=== PATIENT | female | born 2000 ===

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

== ENCOUNTER 2025-01-29 17:27 | Emergency (ER) | payer OTHER, SELFPAY ==
[2025-01-29 17:47] VITALS: BP 121/68; PULSE 73; RESP 18; TEMP 36.6; O2SAT 97; BMI 20.7
[2025-01-29 18:14] LABS: Add Manual Diff / Slide Review NO; Hematocrit 40.6 % (36-46); Hemoglobin 13.9 g/dL (12.0-16.0); Lymphocytes Absolute Auto 3200 /uL (1100-4500); Mean Corpuscular HGB Conc 34.2 % (30-36); Mean Corpuscular Hemoglobin 30.5 PG (26-34); Mean Corpuscular Volume 89.2 fL (80-100); Platelet Count 261 X10^3/uL (150-400)
[2025-01-29 18:16] LABS: Appearance Urine UA CLEAR; Bilirubin Urine UA NEGATIVE (NEGATIVE); Color Urine UA YELLOW; Glucose Urine UA NEGATIVE (Negative); Ketones Urine UA TRACE (NEGATIVE); Leukocyte Esterase Urine UA NEGATIVE (NEGATIVE); Nitrite Urine UA NEGATIVE (Negative); Occult Blood Urine UA NEGATIVE (Negative); Protein Urine UA NEGATIVE (Negative); Specific Gravity Urine UA 1.025 (1.000-1.035); Urobilinogen Urine UA 1.0 E.U./dL (0.2)
[2025-01-29 18:17] LABS: Ictotest Urine Negative (Negative); pH Urine UA 6.0 (4.5-8.0)
[2025-01-29 18:22] LABS: Culture Indicated Urine Cult Not Indicated
[2025-01-29 18:25] LABS: Alanine Aminotransferase 23 IU/L (<35); Albumin 5.0 g/dL (3.5-5.0); Albumin Globulin Ratio 1.5 (1.0-2.8); Alkaline Phosphatase 78 U/L (38-126); Blood Urea Nitrogen 12 mg/dL (7-17); Calcium 9.1 mg/dL (8.4-10.2); Carbon Dioxide 24 mmol/L (22-32); Chloride 104 mmol/L (98-107); Estimated Glomerular Filt Rate > 60 mL/min (>60); Globulin 3.4 g/dL (1.7-4.1); Glucose 85 mg/dL (70-99); HEMOLYSIS < 15 (0-50); Lipase 50 U/L (23-300); Potassium 3.8 mmol/L (3.4-5.1); Sodium 138 mmol/L (137-145); Total Protein 8.4 g/dL (6.3-8.2)
--- NOTE | 2025-01-29 18:36 | ED.ABDPAIN ---
HPI - Abdominal Pain General Chief Complaint: Abdominal Pain Stated Complaint: SENT FROM [facility] FOR POSS APPENDICITIS Time Seen by Provider: 01/29/25 18:36 Source: patient Mode of arrival: Ambulatory History of Present Illness HPI narrative: Patient is a 24-year-old female without any significant past medical history comes into the ED from home for evaluation of right lower quadrant abdominal pain, was seen at the walk-in clinic, sent here. Patient states he has been having these symptoms ongoing persistent for the past 2 days, nothing making it better or worse, does endorse some mild nausea but no vomiting. Denies any other symptoms at this time. Related Data Home Medications ?Medication ?Instructions ?Recorded ?Confirmed No Known Home Medications 01/29/25 01/29/25 Allergies Allergy/AdvReac Type Severity Reaction Status Date / Time No Known Drug Allergies Allergy Verified 01/29/25 17:51 Review of Systems Review of Systems Narrative: General: Denies fever, chills, weight loss HEENT: Denies headache, eye drainage, eye irritation, head trauma, sore throat, voice change Cardiovascular: Denies any chest pain, palpitations, tachycardia Respiratory: Denies any shortness of breath, cough, wheeze, stridor GI/: Positive abdominal pain, nausea, denies vomiting, diarrhea, bright red blood per rectum, melanotic stools, urinary frequency, urinary retention, dysuria, hematuria MSK: Denies any joint pain, muscle pains, swelling Skin: Denies any rashes, lesions, discoloration Neuro: Denies any headache, lightheadedness, dizziness, fainting, weakness Psych: Denies SI/HI Patient History Medical History (Updated 01/29/25 @ 19:54 by Unruly Art DO) Strep pharyngitis Social History Smoking Status: Former smoker Smoking Status: Former smoker Alcohol type: wine Exam Narrative Exam Narrative: General: Cooperative, well-developed, not in acute distress HEENT: Normocephalic, atraumatic, PERRLA, normal sclera, eyelids normal Neck: Active full range of motion, atraumatic Chest: Normal to inspection, negative crepitus, no overlying erythema ecchymosis Respiratory: Normal respiratory effort, not in acute respiratory distress, clear to auscultation bilaterally negative cough, wheeze, tachypnea, rhonchi, rales Cardiology: Regular rate rhythm negative gallop, murmur, rubs GI/: No tenderness to palpation, soft, non rigid, normal to inspection, exam deferred MSK: Full active range of motion in all 4 extremities, atraumatic, no tenderness to palpation of any bony prominences Skin: No rashes or lesions noted Neuro: Alert awake oriented x3, moves all 4 extremities spontaneously, cranial nerves intact, able to answer all questions appropriately follows commands appropriately Psych: Cooperative, negative suicidal or homicidal ideations Initial Vital Signs Initial Vital Signs: Vital Signs Temperature 97.9 F 01/29/25 17:47 Pulse Rate 73 01/29/25 17:47 Respiratory Rate 18 01/29/25 17:47 Blood Pressure 121/68 01/29/25 17:47 Pulse Oximetry 97 01/29/25 17:47 Oxygen Delivery Method Room Air 01/29/25 17:47 Course Orders Ordered: ED Orders 01/29/25 17:58 Ictotest Urine Stat Urinalysis and Microscopic Stat 01/29/25 18:02 Complete Blood Count AUTO DIFF Stat Comprehensive Metabolic Panel Stat Lipase Stat 01/29/25 18:36 CT abdomen pelvis w con Stat Ondansetron HCl (Ondansetron 4 Mg/2 Ml Inj) 4 mg IV NOW PRN PRN Reason: Nausea And Vomiting Ondansetron HCl (Ondansetron 4 Mg Odt) 4 mg PO NOW PRN PRN Reason: Nausea And Vomiting Discontinued Medications Sodium Chloride (Normal Saline 0.9%) 1,000 mls @ 1,000 mls/hr IV BOLUS ONE Stop: 01/29/25 19:36 Last Admin: 01/29/25 19:10 Dose: Not Given Documented By: Ketorolac Tromethamine (Ketorolac 30 Mg/Ml Vial) 30 mg IV NOW ONE Stop: 01/29/25 18:38 Last Admin: 01/29/25 19:10 Dose: Not Given Documented By: Vital Signs Vital signs: Vital Signs - 8 hr 01/29/25 17:47 Temperature 97.9 F Pulse Rate 73 Respiratory Rate 18 Blood Pressure 121/68 Pulse Oximetry 97 Oxygen Delivery Method Room Air MDM - Abdominal Pain Differential Diagnosis Differential diagnosis: Likely abdominal pain, acute appendicitis, constipation, diverticulitis, gastroenteritis, pancreatitis and other (Urinary tract infection, pyelonephritis, electrolyte abnormality) Lab Data 01/29/25 18:02 01/29/25 18:02 Labs: Lab Results 01/29/25 01/29/25 Range/Units 17:58 18:02 WBC 7.1 (4.5-11.0) X10^3/uL RBC 4.55 (4.0-5.2) X10^6/uL Hgb 13.9 (12.0-16.0) g/dL Hct 40.6 (36-46) % MCV 89.2 (80-100) fL MCH 30.5 (26-34) PG MCHC 34.2 (30-36) % RDW 13.6 (11.6-14.8) % Plt Count 261 (150-400) X10^3/uL Neut % (Auto) 43.7 L (50-75) % Lymph % (Auto) 45.0 H (25-40) % [place] % (Auto) 9.2 (3-14) % Eos % (Auto) 1.1 L (2-4) % Baso % (Auto) 1.0 (0-2) % Neut # (Auto) 3100 (9471-6702) /uL Lymph # (Auto) 3200 (2320-3298) /uL [place] # (Auto) 700 (0-900) /uL Eos # (Auto) 100 (0-450) /uL Baso # (Auto) 100 (0-100) /uL Sodium 138 (137-145) mmol/L Potassium 3.8 (3.4-5.1) mmol/L Chloride 104 (98-107) mmol/L Carbon Dioxide 24 (22-32) mmol/L BUN 12 (7-17) mg/dL Creatinine 0.72 (0.52-1.04) mg/dL Estimated GFR > 60 (>60) mL/min BUN/Creatinine Ratio 16.7 (6-22) Glucose 85 (70-99) mg/dL Calcium 9.1 (8.4-10.2) mg/dL Total Bilirubin 0.5 (0.2-1.3) mg/dL AST 41 H (14-36) IU/L ALT 23 (<35) IU/L Alkaline Phosphatase 78 (38-126) U/L Total Protein 8.4 H (6.3-8.2) g/dL Albumin 5.0 (3.5-5.0) g/dL Globulin 3.4 (1.7-4.1) g/dL Albumin/Globulin Ratio 1.5 (1.0-2.8) Lipase 50 (23-300) U/L Urine Color Yellow Urine Appearance Clear Urine pH 6.0 (4.5-8.0) Ur Specific [place] 1.025 (1.000-1.035) Urine Protein Negative (Negative) Urine Glucose (UA) Negative (Negative) g/dL Urine Ketones Trace H (NEGATIVE) Urine Occult Blood Negative (Negative) Urine Nitrate Negative (Negative) Urine Bilirubin Negative (NEGATIVE) Ur Bilirubin Confirm Negative (Negative) Urine Urobilinogen 1.0 (0.2) E.U./dL Ur Leukocyte Esterase Negative (NEGATIVE) Urine RBC 0-1/hpf (0-5/HPF) Urine WBC 0-1/hpf (0-5/HPF) Ur Squamous Epith Cells 0-1 /hpf (0-5/HPF) Urine Bacteria Occasional (0-1) (None) Ur Culture Indicated? Cult not indicated Vol Urine Centrifuged 10ml (spun) Point of care testing: Point of Care Testing Test Results Negative Urine Dip Bedside Urine Glucose Negative Bedside Urine Bilirubin + 1 Bedside Urine Ketone - Negative Urine Specific [place] 1.025 Bedside Urine Occult Blood - Negative Bedside Urine pH 6.0 Bedside Urine Protein - Negative Bedside Urine Urobilinogen - Negative Bedside Urine Nitrite - Negative Bedside Urine Leukocytes - Negative Esterase Imaging Data CT scan - abdomen/pelvis: Radiologist's Impression: [place] [address] CT Scan Report Signed Patient: Beverley Gomez MR#: [id number] : 2000 Acct:[id number] Age/Sex: 24 / F Date of Service: 01/29/25 Loc: ED Accession Number: [id number] Procedure: CT abdomen pelvis w con Ordering Provider: Unruly Art D.O. PROCEDURE: CT ABDOMEN PELVIS W CON INDICATIONS: RLQ abd pain TECHNIQUE: After the administration of intravenous contrast, axial sections acquired from the lung bases to the pubic symphysis. Coronal and sagittal reformats were performed. For radiation dose reduction, the following was used: automated exposure control, adjustment of mA and/or kV according to patient size. COMPARISON: None. FINDINGS: Image quality: Diagnostic Lower chest: Unremarkable lung bases. Normal heart size Liver: Unremarkable Gallbladder and biliary system: Unremarkable, nondilated Pancreas: No ductal dilation Spleen: Nonenlarged Adrenals: No discrete nodules Kidneys: No solid renal mass. No hydronephrosis. Vessels and lymph nodes: The main portal vein is patent. No abdominal aortic aneurysm. No pathologic lymph nodes by size criteria. There are moderately prominent adnexal collaterals and gonadal venous collaterals, more so on the left. Bowel and peritoneum: No acute bowel obstruction. Small amount of pelvic free fluid. Appendix appears nondilated Body wall: Unremarkable Pelvis: Under distended urinary bladder. Reproductive organs are not well assessed on this study. Within this limitation, there is a 2.6 cm right dermoid cyst is present. Bones: No aggressive appearing focal osseous abnormality. IMPRESSION: Nondilated appendix. No small bowel obstruction. Suspected right dermoid cyst measuring up to 2.6 cm. Consider pelvic ultrasound Prominent gonadal and adnexal veins, sometimes associated pelvic congestion. Other findings above. [facility] Narrative Medical decision making narrative: Patient is a 24-year-old female without any significant past medical history comes into the ED from home for evaluation of right lower quadrant abdominal pain ongoing intermittent for the past 2 days, does endorse some nausea but no vomiting, denies any other symptoms at this time. Patient's lab work without any leukocytosis, Chem panel unremarkable, urinalysis not consistent with acute urinary tract infection. Patient did have CT scan that did show normal appendix no bowel obstruction did show suspected right dermoid cyst measuring up to 2.6 cm, I did inform patient of obtaining possible ultrasound to further characterize this, however she states that she feels completely better at this time, I have a low suspicion of torsion at this time given size of cyst and patient without any active pain nausea and vomiting. CT scan also showing possible prominent and gonadal adnexal veins associated with pelvic congestion syndrome, this is most likely contributing to her symptoms. I did instruct her to follow up with OBGYN and her primary care doctor, he verbalized understanding of this and agrees to being discharged home with outpatient follow up Discharge Plan Departure Patient Disposition: Home Clinical Impression: Ovarian cyst Activity Restrictions/Additional Instructions: Please follow up with OBGYN and primary care in outpatient setting You may use NSAIDs such as Aleve or Motrin to help with your symptoms Please read the discharge instructions sheet carefully and bring all papers to all doctor follow-up visits, as it may contain information that your doctor may want to see. Disease processes change and evolve, if your symptoms worsen or if you develop any new symptoms that are concerning to you please return for evaluation. Your evaluation today does not show any evidence of any life-threatening/serious illnesses requiring admission to the hospital or surgery. Please follow-up with your doctor for re-evaluation in approximately 1 day. Seek immediate medical attention for any worrisome symptoms. *If you do not have a primary care provider please contact the [facility] Resource line at [phone]. They will ask some questions about your medical history and help get you set up with a doctor in the community. Prescriptions: No Action No Known Home Medications Referrals: Miscellaneous,MD Nena [Primary Care Provider, Medical] Mayuri Moreno MD [Physician, TOOL MACHINE SET UP OPERATOR] Stand Alone Forms: Patient Portal/API
[2025-01-29 18:51] VITALS: BP 103/78; PULSE 66; RESP 12; O2SAT 98
[2025-01-29 19:51] VITALS: BP 102/65; PULSE 66; RESP 17; TEMP 36.9; O2SAT 97
--- NOTE | 2025-01-29 19:57 | PC.NURSE ---
Pt wanting to leave. notified.
== END 2025-01-29 19:50 | disposition home or self-care (01) ==
PROVIDERS: Emergency Provider Student in an Organized Health Care Education/Training Program
DX: N83.201 Unspecified ovarian cyst, right side (principal)
CPT/HCPCS: 36415; 74177; 80053; 81001; 81003; 81025; 83690; 85025; 99284; J1885; Q9967